=== PATIENT | female | born 1990 | race Caucasian/White ===

== ENCOUNTER 2018-01-17 15:28 | Emergency (ER) | payer MEDICAID, OTHER ==
--- NOTE | 2018-01-17 16:22 | EDM.PDOC ---
ED HPI GENERAL MEDICAL PROBLEM - General Chief Complaint: Abdominal Pain Stated Complaint: ABDOMINAL PAIN Time Seen by Provider: 01/17/18 16:21 Source of Information: Reports: Patient - History of Present Illness INITIAL COMMENTS - FREE TEXT/NARRATIVE: HISTORY AND PHYSICAL: History of present illness: Patient presents for a history of home positive test, she has had some spotting and bleeding during the , she has not followed with OB at this time Her had any evaluation with a physician that is been in 2 weeks since she bled, currently she has some hematuria no fever nausea vomiting chills sweats she complains of mild abdominal pain no low back pain pressure no fluid leak with her bleeding at current [lMP November 30-uncertain dates Patient has miscarried twice in the past early Review of systems: As per history of present illness and below otherwise all systems reviewed and negative. Past medical history: As per history of present illness and as reviewed below otherwise noncontributory. Surgical history: As per history of present illness and as reviewed below otherwise noncontributory. Social history: No reported history of drug or alcohol abuse. Family history: As per history of present illness and as reviewed below otherwise noncontributory. Physical exam: HEENT: Atraumatic, normocephalic, pupils reactive, negative for conjunctival pallor or scleral icterus, mucous membranes moist, throat clear, neck supple, nontender, trachea midline. Lungs: Clear to auscultation, breath sounds equal bilaterally, chest nontender. Heart: S1S2, regular, negative for clicks, rubs, or JVD. Abdomen: Soft, nondistended, nontender. Negative for masses or hepatosplenomegaly. Negative for costovertebral tenderness. Pelvis: Stable nontender. Genitourinary: External exam within normal limits internal exam no products of conception cervix is closed scant blood in the vaginal vault Rectal: Deferred. Extremities: Atraumatic, negative for cords or calf pain. Neurovascular unremarkable. Neuro: Awake, alert, oriented. Cranial nerves II through XII unremarkable. Cerebellum unremarkable. Motor and sensory unremarkable throughout. Exam nonfocal. Diagnostics: [CBC CMP UA hCG quantitative ABO type ] Therapeutics: [[place] Referral to women's health to repeat hCG] Impression: threatened versus complete [6 weeks 6 days by LMP EDC September 06 2018 ABO type "o+" Cervix closed Definitive disposition and diagnosis as appropriate pending reevaluation and review of above. lower abd Pain Score (Numeric/FACES): 9 - Related Data Allergies Allergy/AdvReac Type Severity Reaction Status Date / Time guaifenesin [From Robitussin] Allergy Anaphylactic Verified 01/17/18 15:46 Shock Home Meds: Home Meds . [No Known Home Meds] 01/17/18 [History] Past Medical History Musculoskeletal History: Reports: Other (See Below) Other Musculoskeletal History: right knee pain-patella chantell Neurological History: Reports: Migraines Psychiatric History: Reports: Anxiety - Infectious Disease History Infectious Disease History: Reports: None Other Infectious Disease History: childhood - Past Surgical History HEENT Surgical History: Reports: Adenoidectomy, Myringotomy w Tube(s), Tonsillectomy Musculoskeletal Surgical History: Reports: Other (See Below) Social & Family History - Family History Family Medical History: Noncontributory - Tobacco Use Smoking Status *Q: Never Smoker - Recreational Drug Use Recreational Drug Use: No ED ROS GENERAL - Review of Systems Review Of Systems: See Below ED EXAM, GENERAL - Physical Exam Exam: See Below Course - Vital Signs Last Recorded V/S: Last Vital Signs Temp 96.8 F 01/17/18 15:41 Pulse 106 H 01/17/18 15:41 Resp 20 01/17/18 15:41 BP 131/80 01/17/18 15:41 Pulse Ox 98 01/17/18 15:41 - Orders/Labs/Meds Orders: Active Orders 24 hr Category Date Time Status OB 1st Tri Sgl 1st Gest [US] Stat Exams 01/17/18 16:39 Taken HCG QUALITATIVE,URINE [URCHEM] Stat Lab 01/17/18 16:00 Ordered UA W/MICROSCOPIC [URIN] Stat Lab 01/17/18 16:00 Ordered Labs: Laboratory Tests 01/17/18 01/17/18 01/17/18 Range/Units 15:37 15:57 15:57 WBC 8.11 (4.0-11.0) K/uL RBC 4.84 (4.30-5.90) M/uL Hgb 13.8 (12.0-16.0) g/dL Hct 41.3 (36.0-46.0) % MCV 85.3 (80.0-98.0) fL MCH 28.5 (27.0-32.0) pg MCHC 33.4 (31.0-37.0) g/dL RDW Std Deviation 39.6 (28.0-62.0) fl RDW Coeff of Emile 13 (11.0-15.0) % Plt Count 306 (150-400) K/uL MPV 10.00 (7.40-12.00) fL Neut % (Auto) 62.3 (48.0-80.0) % Lymph % (Auto) 28.0 (16.0-40.0) % [place] % (Auto) 8.9 (0.0-15.0) % Eos % (Auto) 0.6 (0.0-7.0) % Baso % (Auto) 0.2 (0.0-1.5) % Neut # (Auto) 5.1 (1.4-5.7) K/uL Lymph # (Auto) 2.3 (0.6-2.4) K/uL [place] # (Auto) 0.7 (0.0-0.8) K/uL Eos # (Auto) 0.1 (0.0-0.7) K/uL Baso # (Auto) 0.0 (0.0-0.1) K/uL Nucleated RBC % 0.0 /100WBC Nucleated RBCs # 0 K/uL Sodium 140 (136-145) mmol/L Potassium 4.2 (3.5-5.1) mmol/L Chloride 105 (98-107) mmol/L Carbon Dioxide 25.5 (21.0-32.0) mmol/L BUN 10 (7.0-18.0) mg/dL Creatinine 0.8 (0.6-1.0) mg/dL Est Cr Clr Drug Dosing 77.22 mL/min Estimated GFR (MDRD) > 60.0 ml/min Glucose 103 (74-106) mg/dL Calcium 9.2 (8.5-10.1) mg/dL Total Bilirubin 0.2 (0.2-1.0) mg/dL AST 13 L (15-37) IU/L ALT 27 (14-63) IU/L Alkaline Phosphatase 82 (46-116) U/L Total Protein 8.0 (6.4-8.2) g/dL Albumin 4.0 (3.4-5.0) g/dL Globulin 4.0 H (2.0-3.5) g/dL Albumin/Globulin Ratio 1.0 L (1.3-2.8) Lipase 124 (73-393) U/L HCG, Quant mIU/mL Urine Color Urine Appearance Urine pH (5.0-8.0) Ur Specific Roggen (1.001-1.035) Urine Protein (NEGATIVE) mg/dL Urine Glucose (UA) (NEGATIVE) mg/dL Urine Ketones (NEGATIVE) mg/dL Urine Occult Blood (NEGATIVE) Urine Nitrite (NEGATIVE) Urine Bilirubin (NEGATIVE) Urine Urobilinogen (<2.0) EU/dL Ur Leukocyte Esterase (NEGATIVE) Urine RBC (0-2/HPF) Urine WBC (0-5/HPF) Ur Epithelial Cells (NONE-FEW) Urine Bacteria (NEGATIVE) Urine HCG, Qual (NEGATIVE) Blood Type O POSITIVE 01/17/18 01/17/18 01/17/18 Range/Units 15:57 16:00 16:00 WBC (4.0-11.0) K/uL RBC (4.30-5.90) M/uL Hgb (12.0-16.0) g/dL Hct (36.0-46.0) % MCV (80.0-98.0) fL MCH (27.0-32.0) pg MCHC (31.0-37.0) g/dL RDW Std Deviation (28.0-62.0) fl RDW Coeff of Emile (11.0-15.0) % Plt Count (150-400) K/uL MPV (7.40-12.00) fL Neut % (Auto) (48.0-80.0) % Lymph % (Auto) (16.0-40.0) % [place] % (Auto) (0.0-15.0) % Eos % (Auto) (0.0-7.0) % Baso % (Auto) (0.0-1.5) % Neut # (Auto) (1.4-5.7) K/uL Lymph # (Auto) (0.6-2.4) K/uL [place] # (Auto) (0.0-0.8) K/uL Eos # (Auto) (0.0-0.7) K/uL Baso # (Auto) (0.0-0.1) K/uL Nucleated RBC % /100WBC Nucleated RBCs # K/uL Sodium (136-145) mmol/L Potassium (3.5-5.1) mmol/L Chloride (98-107) mmol/L Carbon Dioxide (21.0-32.0) mmol/L BUN (7.0-18.0) mg/dL Creatinine (0.6-1.0) mg/dL Est Cr Clr Drug Dosing mL/min Estimated GFR (MDRD) ml/min Glucose (74-106) mg/dL Calcium (8.5-10.1) mg/dL Total Bilirubin (0.2-1.0) mg/dL AST (15-37) IU/L ALT (14-63) IU/L Alkaline Phosphatase (46-116) U/L Total Protein (6.4-8.2) g/dL Albumin (3.4-5.0) g/dL Globulin (2.0-3.5) g/dL Albumin/Globulin Ratio (1.3-2.8) Lipase (73-393) U/L HCG, Quant 161.0 mIU/mL Urine Color YELLOW Urine Appearance CLEAR Urine pH 6.0 (5.0-8.0) Ur Specific Roggen >= 1.030 (1.001-1.035) Urine Protein NEGATIVE (NEGATIVE) mg/dL Urine Glucose (UA) NEGATIVE (NEGATIVE) mg/dL Urine Ketones NEGATIVE (NEGATIVE) mg/dL Urine Occult Blood SMALL H (NEGATIVE) Urine Nitrite NEGATIVE (NEGATIVE) Urine Bilirubin NEGATIVE (NEGATIVE) Urine Urobilinogen 0.2 (<2.0) EU/dL Ur Leukocyte Esterase NEGATIVE (NEGATIVE) Urine RBC 0-2 (0-2/HPF) Urine WBC 0-1 (0-5/HPF) Ur Epithelial Cells RARE (NONE-FEW) Urine Bacteria RARE (NEGATIVE) Urine HCG, Qual POSITIVE (NEGATIVE) Blood Type Departure - Departure Time of Disposition: 18:12 Disposition: Home, Self-Care 01 Condition: Good Clinical Impression: Elevated serum hCG - Discharge Information Referrals: PCP,None [Primary Care Provider] - Forms: ED Department Discharge Additional Instructions: ER referral to follow-up with women's health for repeat hCG this week Return if symptoms persist or worsen Medications as prescribed Janak Velasquez [facility] [address] The following information is given to patients seen in the emergency department who are being discharged to home. This information is to outline your options for follow-up care. We provide all patients seen in our emergency department with a follow-up referral. The need for follow-up, as well as the timing and circumstances, are variable depending upon the specifics of your emergency department visit. If you don't have a primary care physician on staff, we will provide you with a referral. We always advise you to contact your personal physician following an emergency department visit to inform them of the circumstance of the visit and for follow-up with them and/or the need for any referrals to a consulting specialist. The emergency department will also refer you to a specialist when appropriate. This referral assures that you have the opportunity for follow-up care with a specialist. All of these measure are taken in an effort to provide you with optimal care, which includes your follow-up. Under all circumstances we always encourage you to contact your private physician who remains a resource for coordinating your care. When calling for follow-up care, please make the office aware that this follow-up is from your recent emergency room visit. If for any reason you are refused follow-up, please contact the [facility] emergency department at and asked to speak to the emergency department charge nurse. - My Orders Last 24 Hours: My Active Orders 01/17/18 16:00 HCG QUALITATIVE,URINE [URCHEM] Stat UA W/MICROSCOPIC [URIN] Stat 01/17/18 16:39 OB 1st Tri Sgl 1st Gest [US] Stat - Assessment/Plan Last 24 Hours: My Active Orders 01/17/18 16:00 HCG QUALITATIVE,URINE [URCHEM] Stat UA W/MICROSCOPIC [URIN] Stat 01/17/18 16:39 OB 1st Tri Sgl 1st Gest [US] Stat
[2018-01-17 16:36] LABS: CHLORIDE,CL 105 mmol/L (98-107); SODIUM,NA 140 mmol/L (136-145)
[2018-01-17 18:47] VITALS: BP 124/68
--- NOTE | 2018-01-18 13:54 | US ---
EXAM DATE: 01/17/18 PATIENT'S AGE: 27 Patient: CYNDEE KHAN Facility: [place], [place] Site . Site : 1990 Study: US OB Pelvis [id number] 5:15:51 PM Ordering Physician: Suzi Pineda Final Report: INDICATION: Abdominal pain and vaginal bleeding TECHNIQUE: Ultrasound OB pelvis transvaginal. Real-time pulido-scale imaging of the pelvis was performed. COMPARISON: None FINDINGS: Sonographic imaging demonstrates no evidence of intrauterine or ectopic . Uterus including the endometrium are normal. No sign of endometrial sac or fluid. Ovaries and adnexa are unremarkable. There is a small amount of free fluid in the cul-de-sac. IMPRESSION: Small amount of free fluid in the pelvis is of doubtful significance. Remainder of the exam is unremarkable. No visualized. Dictated by Willy Luis MD @ Jan 17 2018 5:46PM (Electronic Signature) Report Signed by Proxy. MARCELL
== END 2018-01-17 18:30 | disposition home or self-care (01) ==
LOC: MW.ED 15:28
DX: O99.89 Other specified diseases and conditions complicating pregnancy, childbirth and the puerperium (principal); R79.89 Other specified abnormal findings of blood chemistry; Z88.8 Allergy status to other drugs, medicaments and biological substances
CPT/HCPCS: 36415; 76801; 76801-26; 80053; 81001; 81025; 83690; 84702; 85025; 86900; 86901; 99283; 99284-25

== ENCOUNTER 2019-04-24 02:58 | Inpatient (IN) | payer OTHER ==
[2019-04-24] MEDS ORDERED: Tranexamic Acid 1,000 MG in Sodium Chloride 0.9% 100 ML IV PRN (03:35)
[2019-04-24] MEDS ORDERED: Sodium Chloride 0.9% 10 ML SDV IV PRN (03:35)
[2019-04-24] MEDS ORDERED: Sodium Chloride 0.9% 10 ML Syringe FLUSH PRN (03:35)
[2019-04-24] MEDS ORDERED: Butorphanol 1 MG/ML SDV IVPUSH PRN (03:35)
[2019-04-24] MEDS ORDERED: Sodium Chloride 0.9% 2.5 ML Syringe FLUSH PRN (03:35)
[2019-04-24] MEDS ORDERED: Nalbuphine 10 MG/1 ML Vial IVPUSH PRN (03:35)
[2019-04-24] MEDS ORDERED: Misoprostol 200 MCG Tab PO PRN (03:35)
[2019-04-24] MEDS ORDERED: Ondansetron 4 MG/2 ML SDV IVPUSH PRN (03:35)
[2019-04-24] MEDS ORDERED: Carboprost Tromethamine 250 MCG/1 ML Amp IM PRN (03:35)
[2019-04-24] MEDS ORDERED: Ampicillin 2 GM in Sodium Chloride 0.9% 100 ML IV ONE (03:35)
[2019-04-24] MEDS ORDERED: Water For Irrigation,Sterile 1,000 ML Container IRR PRN (03:35)
[2019-04-24] MEDS ORDERED: Lidocaine 1% 50 ML MDV INJECT PRN (03:35)
[2019-04-24] MEDS ORDERED: Methylergonovine 0.2 MG/1 ML Amp IM PRN (03:35)
[2019-04-24] MEDS ORDERED: Oxytocin/0.9 % Sodium Chloride 30 UNIT/500 ML BAG IV SCH (03:45)
[2019-04-24] MEDS ORDERED: Lactated Ringers 1,000 ML IV SCH (03:45)
--- NOTE | 2019-04-24 07:03 | PCM.LDHP ---
L&D History of Present Illness - General Date of Service: 04/24/19 Admit Problem/Dx: Patient Status Order with Admit Dx/Problem 04/24/19 03:19 Patient Status [ADT] Routine 04/24/19 03:35 Patient Status [ADT] Routine Admission Diagnosis/Problem Admission Diagnosis/Problem 04/24/19 06:58 28yo EDC 05/18/2019 36 4/7wks, Followed by me in the clinic. She comes to L&D with C/O labor and leaking. States started leaking 0300 on 04/23/2019. Hx SAB x3, O+, RI, GBS unkwn. Admitted, received one dose of Amp. Source of Information: Patient History Limitations: Reports: No Limitations - History of Present Illness Timing/Duration: Reports: minutes: Location, : Reports: Abdomen Quality: Reports: Ache, Stabbing, Throbbing Severity: Moderate Improves with: Reports: None Worsens with: Reports: None Associated Symptoms: Reports: N - Related Data Allergies/Adverse Reactions: Allergies Allergy/AdvReac Type Severity Reaction Status Date / Time guaifenesin [From Robitussin] Allergy Anaphylactic Verified 04/21/19 17:04 Shock all tussin products Allergy Anaphylactic Uncoded 04/21/19 17:04 Shock Home Medications: Home Meds PNV #116/Iron Fumarate/FA/DHA [Expecta Combo Pack] 03/03/19 [History] buPROPion HCl [Wellbutrin Xl] 300 mg PO 03/03/19 [History] Past Medical History HEENT History: Reports: None Cardiovascular History: Reports: Heart Murmur Respiratory History: Reports: None Gastrointestinal History: Reports: None Genitourinary History: Reports: None 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: , Spontaneous Musculoskeletal History: Reports: Other (See Below) Other Musculoskeletal History: right knee pain-patella chantell Neurological History: Reports: Migraines Psychiatric History: Reports: Anxiety Endocrine/Metabolic History: Reports: None Hematologic History: Reports: None Immunologic History: Reports: None Oncologic (Cancer) History: Reports: None Dermatologic History: Reports: None - Infectious Disease History Infectious Disease History: Reports: Chicken Pox Other Infectious Disease History: childhood - Past Surgical History Head Surgeries/Procedures: Reports: None HEENT Surgical History: Reports: Adenoidectomy, Myringotomy w Tube(s), Tonsillectomy Musculoskeletal Surgical History: Reports: Other (See Below) Social & Family History - Family History Family Medical History: Noncontributory - Tobacco Use Smoking Status *Q: Never Smoker Second Hand Smoke Exposure: No - Caffeine Use Caffeine Use: Reports: None - Recreational Drug Use Recreational Drug Use: No H&P Review of Systems - Review of Systems: Review Of Systems: See Below General: Reports: No Symptoms HEENT: Reports: No Symptoms Pulmonary: Reports: No Symptoms Cardiovascular: Reports: No Symptoms Gastrointestinal: Reports: No Symptoms Genitourinary: Reports: No Symptoms Musculoskeletal: Reports: No Symptoms Skin: Reports: No Symptoms Psychiatric: Reports: No Symptoms Neurological: Reports: No Symptoms Hematologic/Lymphatic: Reports: No Symptoms Immunologic: Reports: No Symptoms L&D Exam - Exam Exam: See Below - Vital Signs Weight: 81.647 kg - OB Specific Movement: Active Heart Tones: Present Heart Tones per Min: 130 Heart Rate (FHR) Variability: Moderate (6-25 bmp) Presentation: Vertex - Simmons Score Simmons Score Cervix Position: Anterior Simmons Score Consistency: Soft Simmons Score Effacement: >80% Simmons Score Dilation: > 5 cm Simmons Score 's Station: +1, +2 Simmons Score Total: 13 - Exam General: Alert, Oriented, Cooperative HEENT: Hearing Intact Lungs: Normal Respiratory Effort GI/Abdominal Exam: Soft, Non-Tender, Pelvis Stable Rectal Exam: Deferred Genitourinary: Normal external exam, Normal bimanual exam, Vaginal bleeding. No : Vaginal lesions, Vaginal tears Back Exam: Full Range of Motion Extremities: Normal Inspection, Normal Range of Motion, Non-Tender, No Pedal Edema Skin: Warm, Dry, Intact Neurological: Reflexes Equal Bilateral, Normal Speech, Normal Tone, Sensation Intact Psychiatric: Alert, Normal Affect, Normal Mood - Patient Data Lab Results Last 24 hrs: Laboratory Results - last 24 hr 04/24/19 04/24/19 04/24/19 Range/Units 03:09 03:48 03:48 WBC 13.33 H (4.0-11.0) K/uL RBC 4.22 L (4.30-5.90) M/uL Hgb 12.5 (12.0-16.0) g/dL Hct 36.5 (36.0-46.0) % MCV 86.5 (80.0-98.0) fL MCH 29.6 (27.0-32.0) pg MCHC 34.2 (31.0-37.0) g/dL RDW Std Deviation 39.0 (28.0-62.0) fl RDW Coeff of Emile 12 (11.0-15.0) % Plt Count 219 (150-400) K/uL MPV 11.30 (7.40-12.00) fL Nucleated RBC % 0.0 /100WBC Nucleated RBCs # 0 K/uL Membrane Rupture POSITIVE Blood Type O POSITIVE Antibody Screen NEGATIVE Result Diagrams: 04/24/19 03:48 - Problem List (1) Supervision of normal IUP (intrauterine ) in primigravida SNOMED Code(s): 97243331, 604364598, 049382757, 917950304 ICD Code: Z34.00 - ENCNTR FOR SUPRVSN OF NORMAL FIRST , UNSP TRIMESTER Status: Acute Priority: High Current Visit: Yes Qualifiers: Trimester: third trimester Qualified Code(s): Z34.03 - Encounter for supervision of normal first , third trimester (2) (normal spontaneous vaginal delivery) SNOMED Code(s): 57273111, 216654896 ICD Code: O80 - ENCOUNTER FOR FULL-TERM UNCOMPLICATED DELIVERY Status: Acute Priority: High Current Visit: Yes Problem List Initiated/Reviewed/Updated: Yes Orders Last 24hrs: Active Orders 24 hr Category Date Time Status Patient Status [ADT] Routine ADT 04/24/19 03:35 Active May Shower [RC] ASDIRECTED Care 04/24/19 03:35 Active Notify Provider [RC] PRN Care 04/24/19 03:35 Active Up ad Maureen [RC] ASDIRECTED Care 04/24/19 03:19 Active Up ad Maureen [RC] ASDIRECTED Care 04/24/19 03:35 Active Vital Signs [RC] PER UNIT ROUTINE Care 04/24/19 03:19 Active Vital Signs [RC] PER UNIT ROUTINE Care 04/24/19 03:35 Active Regular Diet [DIET] Diet 04/24/19 Breakfast Active RAPID PLASMA REAGIN, QUANT [REF] Routine Lab 04/24/19 03:48 Received Butorphanol [Stadol] Med 04/24/19 03:35 Active 1 mg IVPUSH Q1H PRN Carboprost Tromethamine [Hemabate DS] Med 04/24/19 03:35 Active 250 mcg IM ASDIRECTED PRN Lactated Ringers [Ringers, Lactated] 1,000 ml Med 04/24/19 03:45 Active IV ASDIRECTED Lidocaine 1% [Xylocaine 1%] Med 04/24/19 03:35 Active 50 ml INJECT ONETIME PRN Methylergonovine [Methergine] Med 04/24/19 03:35 Active 0.2 mg IM ASDIRECTED PRN Nalbuphine [Nubain] Med 04/24/19 03:35 Active 10 mg IVPUSH Q1H PRN Ondansetron [Zofran] Med 04/24/19 03:35 Active 4 mg IVPUSH Q4H PRN Oxytocin/0.9 % Sodium Chloride [Oxytocin 30 Unit/500 ML Med 04/24/19 03:45 Active -NS] 30 unit in 500 ml IV TITRATE Sodium Chloride 0.9% [Normal Saline] Med 04/24/19 03:35 Active 10 ml IV ASDIRECTED PRN Sodium Chloride 0.9% [Saline Flush] Med 04/24/19 03:35 Active 10 ml FLUSH ASDIRECTED PRN Sodium Chloride 0.9% [Saline Flush] Med 04/24/19 03:35 Active 2.5 ml FLUSH ASDIRECTED PRN Tranexamic Acid [Cyklokapron] 1,000 mg Med 04/24/19 03:35 Active Sodium Chloride 0.9% [Normal Saline] 100 ml IV ONETIME Water For Irrigation,Sterile [Sterile Water for Med 04/24/19 03:35 Active Irrigation] 1,000 ml IRR ASDIRECTED PRN miSOPROStol [Cytotec] Med 04/24/19 03:35 Active 200 mcg PO ONETIME PRN Scalp Electrode [WOMSER] Per Unit Routine Oth 04/24/19 03:35 Ordered Peripheral IV Insertion Adult [OM.PC] Routine Oth 04/24/19 03:35 Ordered Resuscitation Status Routine Resus Stat 04/24/19 03:19 Ordered Medication Orders Butorphanol Tartrate (Stadol) 1 mg IVPUSH Q1H PRN PRN Reason: Pain Carboprost Tromethamine (Hemabate Ds) 250 mcg IM ASDIRECTED PRN PRN Reason: Post Hemorrhage Tranexamic Acid 1,000 mg/ (Sodium Chloride) 110 mls @ 660 mls/hr IV ONETIME PRN PRN Reason: Bleeding Lactated Ringer's (Ringers, Lactated) 1,000 mls @ 150 mls/hr IV ASDIRECTED [facility] Last Admin: 04/24/19 04:03 Dose: 150 mls/hr Oxytocin/Sodium Chloride (Oxytocin 30 Unit/500 Ml-Ns) 30 unit in 500 mls @ 500 mls/hr IV TITRATE [facility] Last Admin: 04/24/19 06:40 Dose: 500 mls/hr Lidocaine HCl (Xylocaine 1%) 50 ml INJECT ONETIME PRN PRN Reason: Laceration repair Methylergonovine Maleate (Methergine) 0.2 mg IM ASDIRECTED PRN PRN Reason: Post Hemorrhage Misoprostol (Cytotec) 200 mcg PO ONETIME PRN PRN Reason: Post Hemorrhage Nalbuphine HCl (Nubain) 10 mg IVPUSH Q1H PRN PRN Reason: Pain (severe 7-10) Ondansetron HCl (Zofran) 4 mg IVPUSH Q4H PRN PRN Reason: Nausea/Vomiting Sodium Chloride (Saline Flush) 10 ml FLUSH ASDIRECTED PRN PRN Reason: Keep Vein Open Sodium Chloride (Saline Flush) 2.5 ml FLUSH ASDIRECTED PRN PRN Reason: Keep Vein Open Sodium Chloride (Normal Saline) 10 ml IV ASDIRECTED PRN PRN Reason: IV Use Sterile Water (Sterile Water For Irrigation) 1,000 ml IRR ASDIRECTED PRN PRN Reason: delivery Assessment/Plan Comment:: Admit/Delivery A: 28yo EDC 05/18/2019 36 4/7wks, Followed by me in the clinic. She comes to L&D with C/O labor and leaking. States started leaking 0300 on 2018. Hx SAB x3, O+, RI, GBS unkwn. Admitted, received one dose of Amp. of viable female, APGARS 7/9, Wt: 6lb 10oz, Intact perineum, EBL 100cc. Mom and baby stable in recovery. P: Admit, Delivered, Dr Gallegos updated. Routine pp plan of care
--- NOTE | 2019-04-24 07:17 | PCM.DEL ---
L & D Note - General Info Date of Service: 04/24/19 Mother's Due Date: 05/18/19 - Delivery Note Labor: Spontaneous Delivery Outcome: Livebirth Infant Delivery Method: Spontaneous Vaginal Delivery-Single Delivery Mode: Spontaneous Presentation: Vertex Nuchal Cord: None Anesthesia Type: None Amniotic Fluid Description: Clear Episiotomy Type: None Laceration: None Cord: 3 Vessels Estimated Blood Loss: 100 Resuscitation Needed: No Score 1 min: 7 Score 5 min: 9 Second Stage Interventions: Reports: Pushing, Pulls Own Legs Back Delivery Comments (Free Text/Narrative):: of viable female. Head delivered with good pushing, Shoulders and body followed easily. to mothers abdomen with RN at for evaluation. Delayed cord clamping. Pitocin to IVF. Cord clamped x2 and cut by FOB. Cord blood collected. pink and crying. Placenta delivered grossly intact. Inspection noted intact perineum. EBL 100cc. APGARS 7/9, WT: 6lb 10oz. Mother and baby left in stable condition for recovery. - General Info Date of Service: 04/24/19 Admission Dx/Problem (Free Text): Patient Status Order with Admit Dx/Problem 04/24/19 03:19 Patient Status [ADT] Routine 04/24/19 03:35 Patient Status [ADT] Routine Admission Diagnosis/Problem Admission Diagnosis/Problem 04/24/19 06:58 28yo EDC 05/18/2019 36 4/7wks, Followed by me in the clinic. She comes to L&D with C/O labor and leaking. States started leaking 0300 on 04/23/2019. Hx SAB x3, O+, RI, GBS unkwn. Admitted, received one dose of Amp. Functional Status: Reports: Pain Controlled, Tolerating Diet - Review of Systems General: Reports: No Symptoms HEENT: Reports: No Symptoms Pulmonary: Reports: No Symptoms Cardiovascular: Reports: No Symptoms Gastrointestinal: Reports: No Symptoms Genitourinary: Reports: No Symptoms Musculoskeletal: Reports: No Symptoms Skin: Reports: No Symptoms Neurological: Reports: No Symptoms Psychiatric: Reports: No Symptoms - Patient Data Weight - Most Recent: 81.647 kg Lab Results Last 24 Hours: Laboratory Results - last 24 hr 04/24/19 04/24/19 04/24/19 Range/Units 03:09 03:48 03:48 WBC 13.33 H (4.0-11.0) K/uL RBC 4.22 L (4.30-5.90) M/uL Hgb 12.5 (12.0-16.0) g/dL Hct 36.5 (36.0-46.0) % MCV 86.5 (80.0-98.0) fL MCH 29.6 (27.0-32.0) pg MCHC 34.2 (31.0-37.0) g/dL RDW Std Deviation 39.0 (28.0-62.0) fl RDW Coeff of Emile 12 (11.0-15.0) % Plt Count 219 (150-400) K/uL MPV 11.30 (7.40-12.00) fL Nucleated RBC % 0.0 /100WBC Nucleated RBCs # 0 K/uL Membrane Rupture POSITIVE Blood Type O POSITIVE Antibody Screen NEGATIVE Med Orders - Current: Current Medications Butorphanol Tartrate (Stadol) 1 mg IVPUSH Q1H PRN PRN Reason: Pain Carboprost Tromethamine (Hemabate Ds) 250 mcg IM ASDIRECTED PRN PRN Reason: Post Hemorrhage Tranexamic Acid 1,000 mg/ (Sodium Chloride) 110 mls @ 660 mls/hr IV ONETIME PRN PRN Reason: Bleeding Lactated Ringer's (Ringers, Lactated) 1,000 mls @ 150 mls/hr IV ASDIRECTED [facility] Last Admin: 04/24/19 04:03 Dose: 150 mls/hr Oxytocin/Sodium Chloride (Oxytocin 30 Unit/500 Ml-Ns) 30 unit in 500 mls @ 500 mls/hr IV TITRATE [facility] Last Admin: 04/24/19 06:40 Dose: 500 mls/hr Lidocaine HCl (Xylocaine 1%) 50 ml INJECT ONETIME PRN PRN Reason: Laceration repair Methylergonovine Maleate (Methergine) 0.2 mg IM ASDIRECTED PRN PRN Reason: Post Hemorrhage Misoprostol (Cytotec) 200 mcg PO ONETIME PRN PRN Reason: Post Hemorrhage Nalbuphine HCl (Nubain) 10 mg IVPUSH Q1H PRN PRN Reason: Pain (severe 7-10) Ondansetron HCl (Zofran) 4 mg IVPUSH Q4H PRN PRN Reason: Nausea/Vomiting Sodium Chloride (Saline Flush) 10 ml FLUSH ASDIRECTED PRN PRN Reason: Keep Vein Open Sodium Chloride (Saline Flush) 2.5 ml FLUSH ASDIRECTED PRN PRN Reason: Keep Vein Open Sodium Chloride (Normal Saline) 10 ml IV ASDIRECTED PRN PRN Reason: IV Use Sterile Water (Sterile Water For Irrigation) 1,000 ml IRR ASDIRECTED PRN PRN Reason: delivery Discontinued Medications Ampicillin Sodium 2 gm/ Sodium (Chloride) 100 mls @ 200 mls/hr IV ONETIME ONE Stop: 04/24/19 04:04 Last Admin: 04/24/19 04:06 Dose: 200 mls/hr - Exam General: Alert, Oriented, Cooperative Lungs: Normal Respiratory Effort GI/Abdominal Exam: Soft, Non-Tender, Pelvis Stable (Female) Exam: Normal External Exam, Normal Bimanual Exam, Vaginal Bleeding. No: Vaginal Lesions, Vaginal Tears Back Exam: Full Range of Motion Extremities: Normal Range of Motion, Non-Tender, No Pedal Edema Skin: Warm, Dry, Intact Neurological: No New Focal Deficit, Normal Speech, Normal Tone, Strength Equal Bilateral, Sensation Intact Psy/Mental Status: Alert, Normal Affect, Normal Mood - Problem List & Annotations (1) Supervision of normal IUP (intrauterine ) in primigravida SNOMED Code(s): 57366048, 812665606, 062567406, 200860822 Code(s): Z34.00 - ENCNTR FOR SUPRVSN OF NORMAL FIRST , UNSP TRIMESTER Status: Acute Priority: High Current Visit: Yes Qualifiers: Trimester: third trimester Qualified Code(s): Z34.03 - Encounter for supervision of normal first , third trimester (2) (normal spontaneous vaginal delivery) SNOMED Code(s): 56753731, 905175383 Code(s): O80 - ENCOUNTER FOR FULL-TERM UNCOMPLICATED DELIVERY Status: Acute Priority: High Current Visit: Yes - Problem List Review Problem List Initiated/Reviewed/Updated: Yes - My Orders Last 24 Hours: My Active Orders 04/24/19 03:19 Up ad Maureen [RC] ASDIRECTED Vital Signs [RC] PER UNIT ROUTINE Resuscitation Status Routine 04/24/19 03:35 Patient Status [ADT] Routine May Shower [RC] ASDIRECTED Notify Provider [RC] PRN Up ad Maureen [RC] ASDIRECTED Vital Signs [RC] PER UNIT ROUTINE Butorphanol [Stadol] 1 mg IVPUSH Q1H PRN Carboprost Tromethamine [Hemabate DS] 250 mcg IM ASDIRECTED PRN Lidocaine 1% [Xylocaine 1%] 50 ml INJECT ONETIME PRN Methylergonovine [Methergine] 0.2 mg IM ASDIRECTED PRN Nalbuphine [Nubain] 10 mg IVPUSH Q1H PRN Ondansetron [Zofran] 4 mg IVPUSH Q4H PRN Sodium Chloride 0.9% [Normal Saline] 10 ml IV ASDIRECTED PRN Sodium Chloride 0.9% [Saline Flush] 10 ml FLUSH ASDIRECTED PRN Sodium Chloride 0.9% [Saline Flush] 2.5 ml FLUSH ASDIRECTED PRN Tranexamic Acid [Cyklokapron] 1,000 mg Sodium Chloride 0.9% [Normal Saline] 100 ml IV ONETIME Water For Irrigation,Sterile [Sterile Water for Irrigation] 1,000 ml IRR ASDIRECTED PRN miSOPROStol [Cytotec] 200 mcg PO ONETIME PRN Scalp Electrode [WOMSER] Per Unit Routine Peripheral IV Insertion Adult [OM.PC] Routine 04/24/19 03:45 Lactated Ringers [Ringers, Lactated] 1,000 ml IV ASDIRECTED Oxytocin/0.9 % Sodium Chloride [Oxytocin 30 Unit/500 ML-NS] 30 unit in 500 ml IV TITRATE 04/24/19 03:48 RAPID PLASMA REAGIN, QUANT [REF] Routine 04/24/19 Breakfast Regular Diet [DIET] - Plan Plan:: Admit/Delivery A: 28yo EDC 05/18/2019 36 4/7wks, Followed by me in the clinic. She comes to L&D with C/O labor and leaking. States started leaking 0300 on 2018. Hx SAB x3, O+, RI, GBS unkwn. Admitted, received one dose of Amp. of viable female, APGARS 7/9, Wt: 6lb 10oz, Intact perineum, EBL 100cc. Mom and baby stable in recovery. P: Admit, Delivered, Dr Gallegos updated. Routine pp plan of care
[2019-04-24] MEDS ORDERED: oxyCODONE 5 MG Tab PO PRN (07:18)
[2019-04-24] MEDS ORDERED: Benzocaine/Menthol 20%-0.5% Spray 78 GM Cannister TOP PRN (07:18)
[2019-04-24] MEDS ORDERED: Docusate Sodium 100 MG Cap PO PRN (07:18)
[2019-04-24] MEDS ORDERED: Acetaminophen 500 MG Tab PO PRN ×2 (07:18)
[2019-04-24] MEDS ORDERED: Ibuprofen 400 MG Tab PO PRN (07:18)
[2019-04-24] MEDS ORDERED: Ibuprofen 800 MG Tab PO PRN (07:18)
[2019-04-24] MEDS ORDERED: Bisacodyl 10 MG Supp RECTAL PRN (07:18)
[2019-04-24] MEDS ORDERED: Lanolin 100% Cream 7 GM Tube TOP PRN (07:18)
[2019-04-24] MEDS ORDERED: Witch Hazel Medicated Pads 40/Jar TOP PRN (07:18)
--- NOTE | 2019-04-25 08:51 | PCM.PNPP ---
- General Info Date of Service: 04/25/19 Functional Status: Reports: Pain Controlled - Review of Systems General: Reports: No Symptoms HEENT: Reports: No Symptoms Pulmonary: Reports: No Symptoms Cardiovascular: Reports: No Symptoms Gastrointestinal: Reports: No Symptoms Genitourinary: Reports: No Symptoms Musculoskeletal: Reports: No Symptoms Skin: Reports: No Symptoms Neurological: Reports: No Symptoms Psychiatric: Reports: No Symptoms - General Info Date of Service: 04/25/19 - Patient Data Vital Signs - Most Recent: Last Vital Signs Temp 36.4 C 04/25/19 05:00 Pulse 95 04/25/19 05:00 Resp 18 04/25/19 05:00 BP 135/90 04/25/19 05:00 Pulse Ox 95 04/25/19 05:00 Weight - Most Recent: 81.647 kg Med Orders - Current: Current Medications Acetaminophen (Tylenol Extra Strength) 500 mg PO Q4H PRN PRN Reason: Pain Acetaminophen (Tylenol Extra Strength) 1,000 mg PO Q4H PRN PRN Reason: Pain Benzocaine/Menthol (Dermoplast Pain Relief 20%-0.5% [place]) 78 gm TOP ASDIRECTED PRN PRN Reason: Perineal Comfort Measure Bisacodyl (Dulcolax) 10 mg RECTAL ONETIME PRN PRN Reason: Constipation Docusate Sodium (Colace) 100 mg PO BID PRN PRN Reason: Constipation Emollient Ointment (Lansinoh Hpa) 0 gm TOP ASDIRECTED PRN PRN Reason: Sore Nipples Last Admin: 04/25/19 07:47 Dose: 1 tube Ibuprofen (Motrin) 400 mg PO Q4H PRN PRN Reason: Pain Ibuprofen (Motrin) 800 mg PO Q6H PRN PRN Reason: Pain Oxycodone HCl (Oxycodone) 5 mg PO Q2H PRN PRN Reason: Pain Witch Donya (Tucks) 1 pad TOP ASDIRECTED PRN PRN Reason: comfort care Discontinued Medications Butorphanol Tartrate (Stadol) 1 mg IVPUSH Q1H PRN PRN Reason: Pain Carboprost Tromethamine (Hemabate Ds) 250 mcg IM ASDIRECTED PRN PRN Reason: Post Hemorrhage Tranexamic Acid 1,000 mg/ (Sodium Chloride) 110 mls @ 660 mls/hr IV ONETIME PRN PRN Reason: Bleeding Ampicillin Sodium 2 gm/ Sodium (Chloride) 100 mls @ 200 mls/hr IV ONETIME ONE Stop: 04/24/19 04:04 Last Admin: 04/24/19 04:06 Dose: 200 mls/hr Lactated Ringer's (Ringers, Lactated) 1,000 mls @ 150 mls/hr IV ASDIRECTED [facility] Last Admin: 04/24/19 04:03 Dose: 150 mls/hr Oxytocin/Sodium Chloride (Oxytocin 30 Unit/500 Ml-Ns) 30 unit in 500 mls @ 500 mls/hr IV TITRATE [facility] Last Admin: 04/24/19 06:40 Dose: 500 mls/hr Lidocaine HCl (Xylocaine 1%) 50 ml INJECT ONETIME PRN PRN Reason: Laceration repair Methylergonovine Maleate (Methergine) 0.2 mg IM ASDIRECTED PRN PRN Reason: Post Hemorrhage Misoprostol (Cytotec) 200 mcg PO ONETIME PRN PRN Reason: Post Hemorrhage Nalbuphine HCl (Nubain) 10 mg IVPUSH Q1H PRN PRN Reason: Pain (severe 7-10) Ondansetron HCl (Zofran) 4 mg IVPUSH Q4H PRN PRN Reason: Nausea/Vomiting Sodium Chloride (Saline Flush) 10 ml FLUSH ASDIRECTED PRN PRN Reason: Keep Vein Open Sodium Chloride (Saline Flush) 2.5 ml FLUSH ASDIRECTED PRN PRN Reason: Keep Vein Open Sodium Chloride (Normal Saline) 10 ml IV ASDIRECTED PRN PRN Reason: IV Use Sterile Water (Sterile Water For Irrigation) 1,000 ml IRR ASDIRECTED PRN PRN Reason: delivery - Interaction Disposition, : [place] in Room with Family Infant Interaction: Holding Infant Feeding: Attempted ; Nursed Fair/Poor Support Person: , Mother - Recovery Exam Fundal Tone: Firm Fundal Level: 1 Fingerbreadths Below Umbilicus Fundal Placement: Midline Lochia Amount: Scant Lochia Color: Rubra/Red Perineum Description: Intact, Minimal Bruising/Swelling Episiotomy/Laceration: None Bladder Status: Voiding Urinary Elimination: Voided - Exam General: Alert, Oriented HEENT: Pupils Equal Neck: Supple Lungs: Clear to Auscultation, Normal Respiratory Effort Cardiovascular: Regular Rate, Regular Rhythm GI/Abdominal Exam: Normal Bowel Sounds, Soft, Non-Tender, No Organomegaly, No Distention, No Abnormal Bruit, No Mass, Pelvis Stable Extremities: Normal Inspection, Normal Range of Motion, Non-Tender, No Pedal Edema, Normal Capillary Refill Skin: Warm, Dry, Intact Wound/Incisions: Healing Well Neurological: No New Focal Deficit Psy/Mental Status: Alert, Normal Affect, Normal Mood - Problem List Review Problem List Initiated/Reviewed/Updated: Yes - Assessment Assessment:: Status post normal spontaneous vaginal delivery the patient is doing well. We will keep her another 24-hour because of her GBS status and she will be discharge in a.m. - Plan Plan:: Admit/Delivery A: 28yo EDC 05/18/2019 36 4/7wks, Followed by me in the clinic. She comes to L&D with C/O labor and leaking. States started leaking 0300 on 2018. Hx SAB x3, O+, RI, GBS unkwn. Admitted, received one dose of Amp. of viable female, APGARS 7/9, Wt: 6lb 10oz, Intact perineum, EBL 100cc. Mom and baby stable in recovery. P: Admit, Delivered, Dr Gallegos updated. Routine pp plan of care
--- NOTE | 2019-04-25 16:25 | PCM.DCSUM1 ---
Discharge Summary - Hospital Course Diagnosis: Stroke: No - Discharge Data Discharge Date: 04/25/19 Discharge Disposition: Home, Self-Care 01 Condition: Good - Referral to Home Health Primary Care Physician: PCP None - Patient Instructions Diet: Usual Diet as Tolerated Activity: As Tolerated Driving: Do Not Drive Showering/Bathing: October Shower - Discharge Plan Home Medications: Home Meds No.116/Iron/Folic/Dha [Expecta Combo Pack] 03/03/19 [History] buPROPion HCl [Wellbutrin Xl] 300 mg PO 03/03/19 [History] Referrals: [facility] [Outside] Vida Hoffman CNM [Mid-] - 06/02/19 10:45 am - Discharge Summary/Plan Comment DC Time >30 min.: Yes - General Info Date of Service: 04/25/19 Functional Status: Reports: Pain Controlled - Review of Systems General: Reports: No Symptoms HEENT: Reports: No Symptoms Pulmonary: Reports: No Symptoms Cardiovascular: Reports: No Symptoms Gastrointestinal: Reports: No Symptoms Genitourinary: Reports: No Symptoms Musculoskeletal: Reports: No Symptoms Skin: Reports: No Symptoms Neurological: Reports: No Symptoms Psychiatric: Reports: No Symptoms - Patient Data Vitals - Most Recent: Last Vital Signs Temp 36.3 C 04/25/19 07:45 Pulse 82 04/25/19 07:45 Resp 16 04/25/19 07:45 BP 127/87 04/25/19 07:45 Pulse Ox 97 04/25/19 07:45 Weight - Most Recent: 81.647 kg Med Orders - Current: Current Medications Acetaminophen (Tylenol Extra Strength) 500 mg PO Q4H PRN PRN Reason: Pain Acetaminophen (Tylenol Extra Strength) 1,000 mg PO Q4H PRN PRN Reason: Pain Benzocaine/Menthol (Dermoplast Pain Relief 20%-0.5% [place]) 78 gm TOP ASDIRECTED PRN PRN Reason: Perineal Comfort Measure Bisacodyl (Dulcolax) 10 mg RECTAL ONETIME PRN PRN Reason: Constipation Docusate Sodium (Colace) 100 mg PO BID PRN PRN Reason: Constipation Emollient Ointment (Lansinoh Hpa) 0 gm TOP ASDIRECTED PRN PRN Reason: Sore Nipples Last Admin: 04/25/19 07:47 Dose: 1 tube Ibuprofen (Motrin) 400 mg PO Q4H PRN PRN Reason: Pain Ibuprofen (Motrin) 800 mg PO Q6H PRN PRN Reason: Pain Oxycodone HCl (Oxycodone) 5 mg PO Q2H PRN PRN Reason: Pain Witch Donya (Tucks) 1 pad TOP ASDIRECTED PRN PRN Reason: comfort care Discontinued Medications Butorphanol Tartrate (Stadol) 1 mg IVPUSH Q1H PRN PRN Reason: Pain Carboprost Tromethamine (Hemabate Ds) 250 mcg IM ASDIRECTED PRN PRN Reason: Post Hemorrhage Tranexamic Acid 1,000 mg/ (Sodium Chloride) 110 mls @ 660 mls/hr IV ONETIME PRN PRN Reason: Bleeding Ampicillin Sodium 2 gm/ Sodium (Chloride) 100 mls @ 200 mls/hr IV ONETIME ONE Stop: 04/24/19 04:04 Last Admin: 04/24/19 04:06 Dose: 200 mls/hr Lactated Ringer's (Ringers, Lactated) 1,000 mls @ 150 mls/hr IV ASDIRECTED [facility] Last Admin: 04/24/19 04:03 Dose: 150 mls/hr Oxytocin/Sodium Chloride (Oxytocin 30 Unit/500 Ml-Ns) 30 unit in 500 mls @ 500 mls/hr IV TITRATE [facility] Last Admin: 04/24/19 06:40 Dose: 500 mls/hr Lidocaine HCl (Xylocaine 1%) 50 ml INJECT ONETIME PRN PRN Reason: Laceration repair Methylergonovine Maleate (Methergine) 0.2 mg IM ASDIRECTED PRN PRN Reason: Post Hemorrhage Misoprostol (Cytotec) 200 mcg PO ONETIME PRN PRN Reason: Post Hemorrhage Nalbuphine HCl (Nubain) 10 mg IVPUSH Q1H PRN PRN Reason: Pain (severe 7-10) Ondansetron HCl (Zofran) 4 mg IVPUSH Q4H PRN PRN Reason: Nausea/Vomiting Sodium Chloride (Saline Flush) 10 ml FLUSH ASDIRECTED PRN PRN Reason: Keep Vein Open Sodium Chloride (Saline Flush) 2.5 ml FLUSH ASDIRECTED PRN PRN Reason: Keep Vein Open Sodium Chloride (Normal Saline) 10 ml IV ASDIRECTED PRN PRN Reason: IV Use Sterile Water (Sterile Water For Irrigation) 1,000 ml IRR ASDIRECTED PRN PRN Reason: delivery - Exam General: Reports: Alert, Oriented HEENT: Reports: Pupils Equal, Pupils Reactive, EOMI, Mucous Membr. Moist/[place] Neck: Reports: Supple Lungs: Reports: Clear to Auscultation, Normal Respiratory Effort Cardiovascular: Reports: Regular Rate, Regular Rhythm GI/Abdominal Exam: Normal Bowel Sounds, Soft, Non-Tender, No Organomegaly, No Distention, No Abnormal Bruit, No Mass, Pelvis Stable (Female) Exam: Normal External Exam, Normal Speculum Exam, Normal Bimanual Exam Rectal (Female) Exam: Normal Exam, Normal Rectal Tone Back Exam: Reports: Normal Inspection, Full Range of Motion Extremities: Normal Inspection, Normal Range of Motion, Non-Tender, No Pedal Edema, Normal Capillary Refill Skin: Reports: Warm, Dry, Intact Wound/Incisions: Reports: Healing Well Neurological: Reports: No New Focal Deficit Psy/Mental Status: Reports: Alert, Normal Affect, Normal Mood
[2019-04-25 17:01] VITALS: BP 135/88; PULSE 72
== END 2019-04-25 17:55 | disposition home or self-care (01) | DRG 807 ==
LOC: MW.OBCHECK 02:58 → MW.OB 02:59 → MW.OBCHECK 03:35 → OBSVTOIN 06:39 → MW.OB 10:30
PROVIDERS: ADMIT Obstetrics & Gynecology; ATTEND Obstetrics & Gynecology
PROC: 10E0XZZ Delivery of Products of Conception, External Approach (ICD-10-PCS; principal; 2019-04-24)
DX: O99.344 Other mental disorders complicating childbirth (principal); Z37.0 Single live birth; F41.9 Anxiety disorder, unspecified; Z3A.36 36 weeks gestation of pregnancy; Z88.8 Allergy status to other drugs, medicaments and biological substances; Z90.89 Acquired absence of other organs
CPT/HCPCS: 36415; 59025; 59409; 84112; 85027; 86593; 86850; 86900; 86901; A9270-GY; J0290; J2590; J7050; J7120

== ENCOUNTER 2019-05-14 18:17 | Emergency (ER) | payer OTHER ==
--- NOTE | 2019-05-14 19:18 | EDM.PDOC ---
ED HPI GENERAL MEDICAL PROBLEM - General Chief Complaint: Lower Extremity Injury/Pain Stated Complaint: SWOLLEN BEHIND LEGS Time Seen by Provider: 05/14/19 18:31 - History of Present Illness INITIAL COMMENTS - FREE TEXT/NARRATIVE: HISTORY AND PHYSICAL: History of present illness: Patient is a 28-year-old female who presents to the emergency room with complaints of bilateral lower extremity swelling. Patient had an uneventful vaginal delivery approximately 3 weeks ago and has noticed some lateral lower extremity swelling. She states she does have a history of anxiety and has been concerned that this swelling could be related to a blood clot. Besides the bilateral LE swelling, she has been asymptomatic. Patient denies any fever, chills, headache, change in vision, syncope or near syncope. Denies any chest pain, back pain, shortness of breath or cough. Denies any abdominal pain, nausea , vomiting, diarrhea, constipation or dysuria. Has not noted any blood in urine or stool. Patient has been eating and drinking appropriately. Review of systems: As per history of present illness and below otherwise all systems reviewed and negative. Past medical history: As per history of present illness and as reviewed below otherwise noncontributory. Surgical history: As per history of present illness and as reviewed below otherwise noncontributory. Social history: See social history for further information Family history: As per history of present illness and as reviewed below otherwise noncontributory. Physical exam: General: Well developed and well nouised 28 year old female. Alert and oriented. Nontoxic appearing and in no acute distress. HEENT: Atraumatic, normocephalic, pupils equal and reactive bilaterally, negative for conjunctival pallor or scleral icterus, mucous membranes moist, TMs normal bilaterally, throat clear, neck supple, nontender, trachea midline. No drooling or trismus noted. No meningeal signs. No hot potato voice noted. Lungs: Clear to auscultation, breath sounds equal bilaterally, chest nontender. Heart: S1S2, regular rate and rhythm without overt murmur Abdomen: Soft, nondistended, nontender. Negative for masses or hepatosplenomegaly. Negative for costovertebral tenderness. Pelvis: Stable nontender. Skin: Intact, warm, dry. No lesions or rashes noted. Extremities: Atraumatic, moves all extremities per self without difficulty or deficits, negative for cords or calf pain. Trace edema to bilateral LE. Strong pedal pulses, cap refill less than 3 seconds. Neurovascular unremarkable. Neuro: Awake, alert, oriented. Cranial nerves II through XII unremarkable. Cerebellum unremarkable. Motor and sensory unremarkable throughout. Exam nonfocal. Notes: EKG is unremarkable. Labs show no acute findings. Physical exam WNL. Reassurance given to patient. Encouraged to follow up with PCP or OBGYN. Supportive care measures were reviewed and discussed. Voices understanding and is agreeable to plan of care. Denies any further questions or concerns at this time. Diagnostics: CBC, CMP, BNP, EKG Therapeutics: None Prescription: None Impression: Encounter for medical screening exam Edema Plan: 1. Rest, ice and elevate lower extremities. 2. Follow up with your OBGYN or Primary Care provider as we discussed. Return to the ED as needed and as discussed. Definitive disposition and diagnosis as appropriate pending reevaluation and review of above. - Related Data Allergies Allergy/AdvReac Type Severity Reaction Status Date / Time cetirizine [From Zyrtec] Allergy Anaphylactic Verified 05/14/19 18:24 Shock guaifenesin [From Robitussin] Allergy Anaphylactic Verified 04/21/19 17:04 Shock all tussin products Allergy Anaphylactic Uncoded 04/21/19 17:04 Shock Home Meds: Home Meds buPROPion HCl [Wellbutrin Xl] 300 mg PO DAILY 03/03/19 [History] Past Medical History HEENT History: Reports: None Cardiovascular History: Reports: Heart Murmur Respiratory History: Reports: None Gastrointestinal History: Reports: None Genitourinary History: Reports: None [employer]ER History: Reports: , Spontaneous Musculoskeletal History: Reports: Other (See Below) Other Musculoskeletal History: right knee pain-patella chantell Neurological History: Reports: Migraines Psychiatric History: Reports: Anxiety Endocrine/Metabolic History: Reports: None Hematologic History: Reports: None Immunologic History: Reports: None Oncologic (Cancer) History: Reports: None Dermatologic History: Reports: None - Infectious Disease History Infectious Disease History: Reports: Chicken Pox Other Infectious Disease History: childhood - Past Surgical History Head Surgeries/Procedures: Reports: None HEENT Surgical History: Reports: Adenoidectomy, Myringotomy w Tube(s), Tonsillectomy Musculoskeletal Surgical History: Reports: Other (See Below) Social & Family History - Family History Family Medical History: Noncontributory - Tobacco Use Smoking Status *Q: Never Smoker - Caffeine Use Caffeine Use: Reports: Coffee - Recreational Drug Use Recreational Drug Use: No Review of Systems - Review of Systems Review Of Systems: Comprehensive ROS is negative, except as noted in HPI. ED EXAM, GENERAL - Physical Exam Exam: See Below (See dictation) Course - Vital Signs Last Recorded V/S: Last Vital Signs Temp 96.5 F 05/14/19 18:25 Pulse 101 H 05/14/19 18:25 Resp 20 05/14/19 18:25 BP 143/97 H 05/14/19 18:25 Pulse Ox 100 05/14/19 18:25 - Orders/Labs/Meds Orders: Active Orders 24 hr Category Date Time Status EKG 12 Lead [EKG Documentation Completion] [RC] STAT Care 05/14/19 18:27 Active B-TYPE NATRIURETIC PEPTIDE,BNP [CHEM] Stat Lab 05/14/19 18:46 Received COMPREHENSIVE METABOLIC PN,CMP [CHEM] Stat Lab 05/14/19 18:46 Received Labs: Laboratory Tests 05/14/19 Range/Units 18:46 WBC 6.93 (4.0-11.0) K/uL RBC 4.42 (4.30-5.90) M/uL Hgb 12.7 (12.0-16.0) g/dL Hct 38.5 (36.0-46.0) % MCV 87.1 (80.0-98.0) fL MCH 28.7 (27.0-32.0) pg MCHC 33.0 (31.0-37.0) g/dL RDW Std Deviation 38.2 (28.0-62.0) fl RDW Coeff of Emile 12 (11.0-15.0) % Plt Count 351 (150-400) K/uL MPV 9.80 (7.40-12.00) fL Neut % (Auto) 61.4 (48.0-80.0) % Lymph % (Auto) 28.1 (16.0-40.0) % Barrow % (Auto) 9.5 (0.0-15.0) % Eos % (Auto) 0.6 (0.0-7.0) % Baso % (Auto) 0.4 (0.0-1.5) % Neut # (Auto) 4.3 (1.4-5.7) K/uL Lymph # (Auto) 2.0 (0.6-2.4) K/uL B[place] # (Auto) 0.7 (0.0-0.8) K/uL Eos # (Auto) 0.0 (0.0-0.7) K/uL Baso # (Auto) 0.0 (0.0-0.1) K/uL Nucleated RBC % 0.0 /100WBC Nucleated RBCs # 0 K/uL Departure - Departure Time of Disposition: 19:18 Disposition: Home, Self-Care 01 Clinical Impression: Encounter for medical screening examination Edema Qualifiers: Edema type: unspecified Qualified Code(s): R60.9 - Edema, unspecified - Discharge Information Referrals: PCP,None [Primary Care Provider] - Additional Instructions: The following information is given to patients seen in the emergency department who are being discharged to home. This information is to outline your options for follow-up care. We provide all patients seen in our emergency department with a follow-up referral. The need for follow-up, as well as the timing and circumstances, are variable depending upon the specifics of your emergency department visit. If you don't have a primary care physician on staff, we will provide you with a referral. We always advise you to contact your personal physician following an emergency department visit to inform them of the circumstance of the visit and for follow-up with them and/or the need for any referrals to a consulting specialist. The emergency department will also refer you to a specialist when appropriate. This referral assures that you have the opportunity for follow-up care with a specialist. All of these measure are taken in an effort to provide you with optimal care, which includes your follow-up. Under all circumstances we always encourage you to contact your private physician who remains a resource for coordinating your care. When calling for follow-up care, please make the office aware that this follow-up is from your recent emergency room visit. If for any reason you are refused follow-up, please contact the [facility] Emergency Department at and asked to speak to the emergency department charge nurse. [facility] [address] [place] [id number] [facility] [address] [place] [id number] Rest, ice and elevate lower extremities. Decrease sodium intake and processed foods Follow up with your OBGYN or Primary Care provider as we discussed. Return to the ED as needed and as discussed. - My Orders Last 24 Hours: My Active Orders 05/14/19 18:27 EKG 12 Lead [EKG Documentation Completion] [RC] STAT 05/14/19 18:46 B-TYPE NATRIURETIC PEPTIDE,BNP [CHEM] Stat COMPREHENSIVE METABOLIC PN,CMP [CHEM] Stat - Assessment/Plan Last 24 Hours: My Active Orders 05/14/19 18:27 EKG 12 Lead [EKG Documentation Completion] [RC] STAT 05/14/19 18:46 B-TYPE NATRIURETIC PEPTIDE,BNP [CHEM] Stat COMPREHENSIVE METABOLIC PN,CMP [CHEM] Stat
[2019-05-14 19:22] LABS: BLOOD UREA NITROGEN,BUN 13 mg/dL (7.0-18.0); CARBON DIOXIDE,CO2 24.5 mmol/L (21.0-32.0); CHLORIDE,CL 104 mmol/L (98-107); GLUCOSE RANDOM 84 mg/dL (74-106); POTASSIUM,K 3.8 mmol/L (3.5-5.1); SODIUM,NA 141 mmol/L (136-145)
[2019-05-14 19:43] VITALS: BP 126/89; PULSE 71
== END 2019-05-14 19:35 | disposition home or self-care (01) ==
LOC: MW.ED 18:17
DX: R60.0 Localized edema (principal); Z79.899 Other long term (current) drug therapy; Z88.8 Allergy status to other drugs, medicaments and biological substances
CPT/HCPCS: 36415; 80053; 83880; 85025; 93005; 99282; 99284-25